=== PATIENT | female | born 1975 | race American Indian/Alaskan Native ===

== ENCOUNTER 2017-01-20 06:42 | Day surgery (SDC) | payer MEDICAID ==
--- NOTE | 2017-01-20 08:13 | Discharge Summary ---
Providers - Providers Date of discharge: 01/20/17 Attending physician: RAMYA PALENCIA Primary care physician: RACHEL SCOTT Hospitalization Condition: Good Procedures: egd Disposition: - TO HOME OR SELFCARE Core Measure Documentation - Palliative Care Palliative Care/ Comfort Measures: Not Applicable - Core Measures Any of the following diagnoses?: none Exam - Physical Exam Narrative exam: unchanged from pre-op Plan Activity: no restrictions Weight Bearing Status: Full Weight Bearing Diet: regular Follow up with: RACHEL SCOTT MD [Primary Care Provider] - 7 Days
--- NOTE | 2017-01-20 08:42 | Anesthesia Day of Surgery ---
Anesthesia Day of Surgery - Day of Surgery Patient Examined: Yes Patient H&P Reviewed: Yes Patient is NPO: Yes
--- NOTE | 2017-01-20 08:42 | Anesthesia Consultation ---
Anesthesia Consult and Med Hx Date of service: 01/20/17 - Airway Anesthetic Teeth Evaluation: Good ROM Head & Neck: Adequate Mental/Hyoid Distance: Inadequate Mallampati Class: Class III Intubation Access Assessment: Possibly Difficult - Pulmonary Exam CTA: Yes - Cardiac Exam Cardiac Exam: RRR - Pre-Operative Health Status ASA Pre-Surgery Classification: ASA3 Proposed Anesthetic Plan: MAC - Pulmonary Hx Smoking: No Hx Sleep Apnea: No (high risk) - Cardiovascular System Hx Hypertension: Yes (high cholesterol) Hx Peripheral Vascular Disease: No (bilateral LE swelling) - Central Nervous System Hx Neuromuscular Disorder: Yes (LUPUS) Hx Seizures: No (migraines) - Gastrointestinal Hx Gastroesophageal Reflux Disease: Yes (mild) - Endocrine Hx Renal Disease: No Hx Insulin Dependent Diabetes: No - Hematic Hx Anemia: No Hx Sickle Cell Disease: No - Other Systems Hx Alcohol Use: No Hx Substance Use: No Hx Cancer: No Hx Obesity: Yes (BMI 47.4)
[2017-01-20] MEDS ORDERED: NACL 0.9% 1000 ML 1,000 ML IV SCH (09:00)
[2017-01-20] MEDS ORDERED: DIPRIVAN 10 MG/ML IV ONE (09:07)
[2017-01-20] MEDS ORDERED: WATER FOR IRRIG STERILE IR ONE (09:24)
--- NOTE | 2017-01-20 09:25 | Post Anesthesia Evaluation ---
- Post Anesthesia Evaluation Patient Participated: Yes Airway Patent: Yes Stable Respiratory Function: Yes Nausea/Vomiting: No Temp > 96.8F: Yes Pain Manageable: Yes Adequeate Hydration: Yes Anesthesia Complications: No Block Receding Appropriately: Not Applicable Patient on Ventilator: No
--- NOTE | 2017-01-20 09:28 | Operative Report ---
Operative Report Operative Report: OPERATIVE REPORT - EGD DATE 01/20/17 SURGERY: Upper endoscopy. SURGEON: Regulo Ramirez M.D. PRE OP DX: GERD POST OP DX: hiatal hernia TYPE OF ANESTHESIA: MAC. ESTIMATED BLOOD LOSS: None. COMPLICATIONS: None. SPECIMENS REMOVED: None. FINDINGS: 1. Small hiatal hernia. 2. Otherwise, normal esophagus, stomach and first portion of duodenum. INDICATIONS:INDICATION FOR PROCEDURE: Patient is a 41-year-old female with a long history of morbid obesity. She is planned to have a weight loss procedure and is here for preoperative planning EGD. We are looking for any pathology that would be prohibitive for her planned bariatric surgery. PROCEDURE DETAILS: After consent was reviewed, patient was taken back to the operating room where patient was placed in the left lateral decubitus position and a bite block was placed in the mouth. After a time-out was called, MAC anesthesia was initiated. I then passed the endoscope into her oropharynx, into her esophagus, visualized the entire esophagus, which was all within normal limits. I then visualized the stomach and the first portion of the duodenum and there were no abnormalities I could clearly visualize. I then retroflexed the scope in the stomach and visualized the hiatus and I could see a small hiatal hernia. I then desufflated the stomach and removed the endoscope. Patient tolerated procedure well and was transferred to recovery room in good and stable condition.
[2017-01-20 11:03] VITALS: BP 121/70
== END 2017-01-20 06:43 | disposition home or self-care (01) ==
LOC: GIO 06:42
PROVIDERS: ATTEND Surgery
DX: K44.9 Diaphragmatic hernia without obstruction or gangrene (principal); F32.9 Major depressive disorder, single episode, unspecified; I10 Essential (primary) hypertension; K21.9 Gastro-esophageal reflux disease without esophagitis; E66.01 Morbid (severe) obesity due to excess calories; E78.00 Pure hypercholesterolemia, unspecified; G43.909 Migraine, unspecified, not intractable, without status migrainosus; Z98.890 Other specified postprocedural states; Z88.0 Allergy status to penicillin; Z88.1 Allergy status to other antibiotic agents; Z88.8 Allergy status to other drugs, medicaments and biological substances; Z68.42 Body mass index [BMI] 45.0-49.9, adult
CPT/HCPCS: 43235; 81025; J2704; J7030

== ENCOUNTER 2017-01-26 07:20 | Inpatient (IN) | payer MEDICAID ==
[2017-01-26] MEDS ORDERED: TRANSDERM-SCOP TD SCH (10:00)
[2017-01-26] MEDS ORDERED: ZOFRAN IV PRN (10:40)
[2017-01-26] MEDS ORDERED: REGLAN IV PRN (10:40)
--- NOTE | 2017-01-26 10:59 | Anesthesia Day of Surgery ---
Anesthesia Day of Surgery - Day of Surgery Patient Examined: Yes Patient H&P Reviewed: Yes Patient is NPO: Yes
--- NOTE | 2017-01-26 10:59 | Anesthesia Consultation ---
Anesthesia Consult and Med Hx Date of service: 01/26/17 - Airway Anesthetic Teeth Evaluation: Good ROM Head & Neck: Adequate Mental/Hyoid Distance: Adequate Mallampati Class: Class III Intubation Access Assessment: Probably Good - Pulmonary Exam CTA: Yes - Cardiac Exam Cardiac Exam: RRR - Pre-Operative Health Status ASA Pre-Surgery Classification: ASA3 Proposed Anesthetic Plan: General - Pulmonary Hx Smoking: No Hx Asthma: No Hx Sleep Apnea: Yes (cpap) - Cardiovascular System Hx Hypertension: Yes (x10yrs) Hx Heart Attack/AMI: No Hx Heart Murmur: No Hx Peripheral Vascular Disease: No (bilateral LE swelling) - Central Nervous System Hx Neuromuscular Disorder: Yes (LUPUS, not on steroids) Hx Seizures: No (migraines) Hx Psychiatric Problems: No - Gastrointestinal Hx Gastroesophageal Reflux Disease: Yes (mild) - Endocrine Hx Renal Disease: Yes (lupus related glomerulonephritis) Hx Insulin Dependent Diabetes: No - Hematic Hx Anemia: Yes Hx Sickle Cell Disease: No - Other Systems Hx Alcohol Use: Yes (OCCASIONAL WINE) Hx Substance Use: No Hx Cancer: No Hx Obesity: Yes
[2017-01-26] MEDS ORDERED: VERSED IV NR (11:00)
[2017-01-26] MEDS ORDERED: LOVENOX SUB-Q NR (11:00)
[2017-01-26] MEDS ORDERED: LEVAQUIN 500MG/100ML 500 MG/100 ML BAG IV NR (11:00)
[2017-01-26] MEDS ORDERED: NACL BACTERIOSTATIC INFILTRATI ONE (11:10)
[2017-01-26 11:11] LABS: Bilirubin,Urine NEG (Negative); Blood,Urine SM (Negative); Ketones,Urine NEG (Negative); Leukocyte Esterase,Urine NEG (Negative); Mucus,Urine FEW /HPF; Nitrite,Urine NEG (Negative); Urobilinogen,Urine < 2.0 mg/dL (<2.0)
[2017-01-26] MEDS ORDERED: FLAGYL 500 MG/100 ML 500 MG/100 ML BAG IV NR (11:30)
[2017-01-26] MEDS ORDERED: XYLOCAINE MPF 2% ONE (11:55)
[2017-01-26] MEDS ORDERED: ZEMURON IV ONE (11:55)
[2017-01-26] MEDS ORDERED: SUBLIMAZE ONE (11:56)
[2017-01-26] MEDS ORDERED: DIPRIVAN 10 MG/ML IV ONE (11:56)
[2017-01-26] MEDS ORDERED: MORPHINE IV PRN (12:00)
[2017-01-26] MEDS ORDERED: PEPCID IV NR (12:00)
[2017-01-26] MEDS ORDERED: APRESOLINE IV PRN (12:00)
[2017-01-26] MEDS: LACTATED RINGERS 1,000 ML IV SCH (12:02)
[2017-01-26] MEDS ORDERED: XYLOCAINE 1% 20 mL ONE (12:21)
[2017-01-26] MEDS ORDERED: MARCAINE-EPI/PF 0.5%-1:200,000 INFILTRATI ONE ×2 (12:22→13:19)
--- NOTE | 2017-01-26 12:41 | Operative Report ---
Operative Report Operative Report: Operative Report DATE OF PROCEDURE: 01/26/17 PREOPERATIVE DIAGNOSES: Morbid obesity, hiatal hernia POSTOPERATIVE DIAGNOSES: 1.same as pre-op SURGEON: Regulo Ramirez M.D. CODE AND TEST CLERK: Judit Lockwood MD, Danilo Black CSA PROCEDURE: 1. laparoscopic sleeve gastrectomy 2. laparoscopic hiatal hernia repair ANESTHESIA: General. ESTIMATED BLOOD LOSS: <5 mL. COMPLICATIONS: None. SPECIMEN: Partial gastrectomy. FINDINGS: 1. hiatal hernia INDICATION FOR PROCEDURE: Patient is a 41-year-old female with a long history of morbid obesity. She has tried multiple efforts at weight loss without terminologist success. She is here today for sleeve gastrectomy. PROCEDURE IN DETAIL: After consent was reviewed, patient was taken back to the operating room, where patient was placed supine on the bed with both arms out. The patient's legs were doubly strapped to the bed. Patient had a foot board in place. Patient had a body warmer placed by anesthesia. Patient was then prepped and draped in normal sterile surgical fashion. After a time-out was called, I made a stab incision in the LUQ and placed a Veress needle through this incision and insufflated the abdomen to 18 mmHg pressure. I then counted down a handsbreadth below the xiphoid process in the midline and slightly left lateral injected local anesthetic and made about 0.5 cm transverse incision. I then used a 12-mm Optiview trocar to enter into the abdomen. I then placed a 45- degree scope through this port and inspected the abdomen. There was no injury on entry of the abdomen. I then placed two 5-mm ports in the right upper quadrant, one along the left anterior axillary line and 1 subxiphoid below the costovertebral angle. I then placed a 15-mm port about a handsbreadth right lateral and inferior to my anterior axillary port. I then placed the liver retractor through the subxiphoid port and placed the patient in full reverse Trendelenburg. The right and left crura were skeletonized accentuating a small hiatal hernia. An anterior cruraplasty was perfromed with a figure-of-8 stitch using surgidac suture to reapproximate the crura. I then identified the pylorus and then counted off 6cm from the pylorus. I then used a LigaSure cutting device to enter into the lesser sac. At that point and then I took down the short gastrics all the way up to the left johana. Then I had anesthesia pass down a 36-[place] bougie along the lesser curvature of the stomach. I made sure everything else was out of the abdomen except the bougie. I then created my gastric sleeve using a 60-mm laparoscopic stapler. . The sleeve looked good without any twisting or torsion. I then had anesthesia to remove the bougie. Hemostasis was obtained along the staple line. I then used Tiseel along the entirety of the staple line and some on the liver. I then removed liver grasper and took it off the field. I then removed the stomach through the 15-mm port. I then closed that fascia with a #1 PDS in a [id number] fashion using a Abhishek-Lucy. I then desufflated the abdomen and then removed all port sites. I then closed the incisions with 4-0 Monocryl in subcuticular fashion. I then dressed the wounds with Dermabond. Patient tolerated the procedure well and was transferred to recovery room in good and stable condition.
[2017-01-26] MEDS ORDERED: DILAUDID ONE ×2 (13:17→15:38)
[2017-01-26] MEDS ORDERED: XYLOCAINE 1% 20 mL INFILTRATI ONE (13:19)
[2017-01-26] MEDS ORDERED: NACL 0.9% IR ONE ×2 (13:19→13:20)
[2017-01-26] MEDS ORDERED: ZOFRAN ONE (13:44)
[2017-01-26] MEDS ORDERED: ROBINUL ONE (13:44)
[2017-01-26] MEDS ORDERED: TORADOL ONE (13:45)
[2017-01-26] MEDS ORDERED: NEOSTIGMINE ONE (13:45)
[2017-01-26] MEDS: DILAUDID IV PRN ×3 (14:42→15:35)
[2017-01-26] MEDS: FLAGYL 500 MG/100 ML 500 MG/100 ML BAG IV SCH (19:10)
[2017-01-26] MEDS: MYLICON PO PRN (19:11)
[2017-01-27] MEDS ORDERED: NORCO PO PRN (01:00)
[2017-01-27] MEDS: FLAGYL 500 MG/100 ML 500 MG/100 ML BAG IV SCH (03:04)
[2017-01-27] MEDS: MYLICON PO PRN ×2 (03:04→13:43)
[2017-01-27] MEDS: DILAUDID IV PRN ×2 (06:44→13:15)
[2017-01-27] MEDS: LACTATED RINGERS 1,000 ML IV SCH (06:48)
[2017-01-27] MEDS ORDERED: LOVENOX SUB-Q SCH (10:00)
[2017-01-27] MEDS ORDERED: NORMODYNE PO SCH (10:00)
[2017-01-27] MEDS ORDERED: LEVAQUIN 500MG/100ML 500 MG/100 ML BAG IV SCH (10:00)
[2017-01-27 11:08] LABS: Basophils % (Auto) 0.4 % (0.0-1.8); Eosinophils % (Auto) 0.5 % (0.0-4.3); Hematocrit 32.3 % (30.3-42.9); Hemoglobin 10.5 gm/dl (10.1-14.3); Mean Corpuscular HGB Conc 33 % (30-34); Mean Corpuscular Hemoglobin 26 pg (28-32); Mean Corpuscular Volume 79 fl (79-97); Platelet Count 307 K/mm3 (140-440); Red Blood Count 4.08 M/mm3 (3.65-5.03); Red Cell Distribution Width 12.6 % (13.2-15.2); White Blood Count 9.2 K/mm3 (4.5-11.0)
[2017-01-27 11:19] LABS: Alanine Aminotransferase 73 units/L (7-56); Albumin 3.5 g/dL (3.9-5); Alkaline Phosphatase 35 units/L (35-129); Anion Gap 17 mmol/L; Blood Urea Nitrogen 14 mg/dL (7-17); Calcium 8.5 mg/dL (8.4-10.2); Carbon Dioxide 25 mmol/L (22-30); Chloride 100.9 mmol/L (98-107); Glucose 94 mg/dL (65-100); Potassium 3.5 mmol/L (3.6-5.0); Sodium 139 mmol/L (137-145); Total Protein 6.9 g/dL (6.3-8.2)
--- NOTE | 2017-01-27 13:46 | Discharge Summary ---
Providers - Providers Date of Admission: 01/26/17 08:40 Attending physician: RAMYA PALENCIA Primary care physician: [facility]SULT[facility] Hospitalization Reason for admission: Laparoscopic sleeve gastrectomy Condition: Good Procedures: Laparoscopic sleeve gastrectomy Hospital course: 41 y.o. F admitted to the hospital for laparoscopic sleeve gastrectomy. Pt .tolerated the procedure well. POD 1 she tolerated clear, ambulated and pain was controlled. Disposition: DC-01 TO HOME OR SELFCARE Core Measure Documentation - Palliative Care Palliative Care/ Comfort Measures: Not Applicable - Core Measures Any of the following diagnoses?: none Exam - Physical Exam Narrative exam: VSS Abd: soft, obese, tender at incision sites, incision cdi. ext: c/c/e - Constitutional Vitals: Temp Pulse Resp BP Pulse Ox 98.7 F 103 H 18 149/78 98 01/27/17 12:05 01/27/17 12:05 01/27/17 12:05 01/27/17 12:05 01/27/17 12:05 Plan Activity: other (no lifitng >15lbs for 6 weeks ) Diet: clear liquids (clear sugar free) Wound: keep clean and dry, other (may shower in 2 days) Additional Instructions: wound care apt Monday Follow up with: COURTNEY CHOPRA MD [Primary Care Provider] - 7 Days RAMYA PALENCIA MD [Staff Physician] - 14 Days
[2017-01-27 16:59] VITALS: BP 122/69
== END 2017-01-27 16:15 | disposition home or self-care (01) | DRG 327 ==
LOC: 3A 08:40 → 3B-SURG 16:43
PROVIDERS: ADMIT Surgery; ATTEND Surgery
PROC: 0DB64Z3 Excision of Stomach, Percutaneous Endoscopic Approach, Vertical (ICD-10-PCS; principal; 2017-01-26)
PROC: 0BQS4ZZ (ICD-10-PCS; 2017-01-26)
PROC: 0BQR4ZZ (ICD-10-PCS; 2017-01-26)
DX: K44.9 Diaphragmatic hernia without obstruction or gangrene (principal); Z68.42 Body mass index [BMI] 45.0-49.9, adult; E66.01 Morbid (severe) obesity due to excess calories; K21.9 Gastro-esophageal reflux disease without esophagitis; I10 Essential (primary) hypertension
CPT/HCPCS: 36415; 80053; 81001; 81025; 85025; 88307; A4217; C9250; J1170; J1650; J1885; J1956; J2250; J2270; J2405; J2704; J2710; J3010; J7120